=== PATIENT | male | born 1980 | race African-American/Black ===

== ENCOUNTER 2025-03-16 17:18 | Inpatient (IN) | payer OTHER, MEDICAID, SELFPAY ==
--- OUTSIDE RECORDS SUMMARY | 2014-10-13 05:47 | XMS_ITS | Continuity of Care Document ---
Author Organization [facility] Address [id number] [address] Phone Care Team Providers Care Senior Drafter Name Role Phone Climer Valencia THORNE Unavailable Unavailable Allergies, Adverse Reactions, Alerts Substance Reaction Status Criticality tramadol Itching(moderate) Active No Informa tion Medications Medication Instructions Dosage Effective Dates (start - stop) Status Comments No Drug Therapy Prescribed Problems Condition Type Effective Dates (start - stop) Clini fatemeh Status Comments No Known Problems Procedures Procedure Date OFFICE/OUTPATIENT VISIT, [facility] COMPLETE CBC W/AUTO DIFF WBC (PP $13.25) COMPREHEN METABOLIC PANEL (PP $18) ROUTINE VENIPUNCTURE (PP $3.50) 014 OFFICE/OUTPATIENT VISIT, NEW URINALYSIS AUTO W/O SCOPE (PP $3.50) Jul DRUG SCREEN SINGLE (PP $40) ASSAY OF URINE CREATININE (PP $8.75) Jul Advance Directives Directive Yes / No Effective Date File Name No Information Encounters Encounter Description Practice Location Reason(s) For Visit Diagnoses Date Provider Providers Copied on Encounter OFFICE/OUTPAT IENT VISIT, EST [facility], [id number], [id number], [place] tel:[phone] Family Medicine F1 pain in foot/ankle (chief complaint) Pain in multiple joints 5 [facility]. [address], [place], [address] , [place]. tel:[phone] Referring Provider: Valencia Mcrae, [address], [place], [address] . tel:[phone] [facility], [id number] [place], [place], [address], [place] tel:[phone] Family Medicine F1 Pain in joint involving multiple sites Jul-0 4 Amrit Escalante. [address], [place], [place], [address] , [place]. tel: [phone] Referring Provider: Ava Irizarry, [address], [place], [address] . tel:[phone] OFFICE/OUTPAT IENT VISIT, [facility], [id number], [address], [place] tel:[phone] Family Medicine F1 Arthalgias (chief complaint) Pain in multiple jointsEncounter for therapeutic drug monitoring Jul-0 4 Amrit Escalante. [address], [place], [place], [address] , [place]. tel:[phone] Referring Provider: Ava Irizarry, [address], [place], [address] . tel:[phone] [facility], [id number] [place], [address], [place] tel:[phone] Family Medicine F1 Pain in joint involving multiple sitesLong-term (current) use of other medications Jul-0 4 Amrit Escalante. [address], [place], [place], [address] , [place]. tel:[phone] Referring Provider: Ava Marcus R, [address], [place], [address] . tel:[phone] Family History Family Member Type Diagnosis Age At Onset No Information Payers Payer name Insurance type Covered democrat ID Rishabh cooper(s) No Information Social History Type Description Quantity Date Captured Comments Alcohol Use Details No Caffeine Use Details coffee and soda > 32oz per day Tobacco Use Status Moderate cigarette smoker (10-19 cigs/day) Smoking Status Heavy tobacco smoker Smoking Tobacco Use Details Cigarette: Years Used 15 Cigarette: 0 Packs per day, Pack Year: 7.5 Sex Male Vital Signs Date / Time: Height Weight BMI Pulse Rate Blood Pressure Temperature Respiratory Rate Body Surface Area Head Circumference Head Circ. Percentile Wt./Bart. Percentile BMI percentile Pulse Ox Inhaled Ox 11:05 AM 74.00 in 77.882 kg (171.70 lbs) 22.0 4 kg/m eter (2) 114 /min 149/96 mm[Hg] 98.10 F 18 /min 2.02 meter(2) 98 % Chief Complaint And Reason For Visit From encounter dated '10/13/2014 10:47'. pain in foot/ankle (chief complaint). Description: pt states that he doesnt want to ever see DD again. he is in pain from his foot. he went to the ER last night but they couldnt give him anything forthe pain. he is out of his pain meds that he had. DD would not fill them. ER notes: Ankle Sprain, contusion of right Knee and Chronic foot pain. Reason For Referral Reason For Referral No Information Plan Of Treatment Date Type Action Status Goal Tobacco cessation counseling completed History Of Present Illness Encounter Date Complaint History Of Prese nt Illness pain in foot/ankle pt states hola t he doesnt want to ever see DD again. he is in pain from his foot. he went to the ER last night but they couldnt give him anything for the pain. he is out of his pain meds that he had. DD would not fill them. ER notes: Ankle Sprain, contusion of right Knee and Chronic foot pain. pain in foot/ankle (comments) He had an xray of the right ankle and right knee yesterday at [facility]. No broken bones. Told sprains. They gave him gabapentin. He was going to see a radiologist Dr. Sarabia who giving him hydrocodone 5/325mg and he was doubling up due to his pain and also taking them every 6 hours. He has had an MRI of the right foot and he is not sure what it showed. He was taking pain medication for 4 months. He reports had an itchy rash on his right ankle and told he had HSP and then had pain so someone gave him pain medicaiton. He was given norco at the ER yesterday. Denies illicit drug use. Arthalgias Onset: 1 month a go. Location: bilateral knee. The pain is aching. There are no relieving factors. Associated symptoms include joint instability, joint tenderness, nocturnal awakening, nocturnal pain and swelling. 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 Pt states prednisone and pain medications. Pt has pain in knees and ankles. Hurts to walk. Functional Status Date Functional Assessmen t Pain Score 8/10 Medications Administered Medication Instructions Dosage Effective Dates (start - stop) Status Comments No Drug Therapy Prescribed Instructions Date Instruction Additional Infor kiel I do not have past m edical records to review. He had his ER printed sheet stating sprain.I did offer NSAID and he declined.I reviewed Ava's note from Jul and also the UDS showing marijuana use and explained he can not get controlled medication from us and he became angry, defensive and then left. Related to Pain in multiple joints Mental health care education Rel ated to Pain in multiple joints After Cyber ascess. Pt has been given multiple narcotics in ER. He see's Dr. Can that prescribes medications. I explained I would not be to give him narcotics. I would need all records and he needs to see Dr. Can for this. Related to Pain in multiple joints Assessments Type Assessment Date assessment Pain in multiple joints 015 Mental Status Date Cognitive Assessment Orientation - [place] ed to time, place, person, situation. Patient Care Teams Name Effective Dates (start - stop) Status Members No Information
[2025-03-16 17:21] VITALS: BP 144/94; PULSE 129; RESP 18; TEMP 36.7; O2SAT 97; BMI 34.3
[2025-03-16 20:57] LABS: Hematocrit 47.7 % (37-53); Hemoglobin 15.70 g/dL (11.27-16.99); Mean Corpuscular HGB Conc 32.9 g/dL (30-55); Mean Corpuscular Hemoglobin 26.7 pg (27-33); Mean Corpuscular Volume 81.1 fl (82-101); Nucleated Red Blood Cells % 0 %; Platelet Count 343 10^3/cmm (157-399); Red Blood Count 5.88 10^6/uL (3.85-5.65); White Blood Count 18.29 10^3/uL (3.29-11.43)
--- NOTE | 2025-03-16 21:25 | ECG_ITS ---
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 Measurements Intervals [place] Rate: 93 P: 37 [place]: 182 QRS: 24 QRSD: 110 T: 38 QT: 348 QTc: 435 Interpretive Statements SINUS RHYTHM INCOMPLETE RIGHT BUNDLE BRANCH BLOCK [90+ ms QRS DURATION, TERMINAL R IN V1/V2, 40+ ms S IN I/aVL/V4/V5/V6] Compared to ECG 09/26/2018 19:02:58 ST (T wave) deviation no longer present Electronically Signed On 03-19-2025 09:05:40 CDT by Colby Valdovinos M.D. [email or web address]
[2025-03-16 21:38] VITALS: BP 161/100
[2025-03-16 21:42] LABS: Alanine Aminotransferase 18 U/L (0-41); Albumin Level 4.5 g/dL (3.5-5.2); Alkaline Phosphatase 121 U/L (40-130); Anion Gap 21.6 (5-19); Aspartate Amino Transferase 15 U/L (0-40); Blood Urea Nitrogen 5 mg/dL (6-20); Calcium 9.6 mg/dL (8.5-10.5); Carbon Dioxide 21 mmol/L (22-29); Chloride 104 mmol/L (98-107); Creatinine Clr Calc Pharmacy 150.5823; Globulin 3.4 g/dL (1.3-4.6); Glucose 87 mg/dL (65-115); Lipase 27 U/L (13-60); Osmolality Calculated 293 mOsm/kg (285-295); Potassium 3.6 mmol/L (3.5-5.1); Sodium 143 mmol/L (136-145); Total Protein 7.9 g/dL (6.6-8.7)
[2025-03-16 21:51] LABS: Glucose Urine UA Negative (Normal); Nitrate Urine Negative (Negative); Specific Gravity, Urine 1.012 (1.005-1.030)
[2025-03-16 21:53] LABS: Add Urine Microscopic? YES
[2025-03-16 21:58] LABS: PCP Screen Urine Negative (Negative)
--- NOTE | 2025-03-16 22:21 | ED.C_ITS ---
HPI - Psych 2 General: Chief Complaint: Nausea/Vomiting/Diarrhea Stated Complaint: chills, aches, n/v/f Time Seen by Provider: 03/16/25 20:08 History of Present Illness: Patient is 44-year-old male chronically on buprenorphine, for the last 5 years, presents to the ED with withdrawal symptoms initially, then admits suicide ideations, hearing voices, spiritual voices, hearing them tells himself to kill himself. No specific plan. Admits to palpitations without chest pain. Admits to night terrors. Associated symptoms: Reports suicidal ideation Related Data Home Medications ?Medication ?Instructions ?Recorded ?Confirmed buprenorphine 8 mg-naloxone 2 mg tab sublingual 02/25/25 sublingual tablet gabapentin 300 mg capsule mg PO 02/25/25 02/25/25 quetiapine 400 mg tablet mg PO 02/25/25 02/25/25 Previous Rx's ?Medication ?Instructions ?Recorded amoxicillin 500 mg capsule 500 mg PO TID #30 caps 01/26 02/18 Allergies Allergy/AdvReac Type Severity Reaction Status Date / Time No Known Allergies Allergy Verified 03/16/25 17:25 Review of Systems 2 General: Reports: 10 or more systems reviewed and unremarkable except in HPI and below Const: Denies: fever(s) or chills Eyes: Denies: change in vision or blurry vision ENMT: Denies: throat pain or mouth pain Card: Denies: chest pain or palpitations GI: Reports: nausea; Denies: abdominal pain or vomiting : Denies: flank pain or difficulty urinating Musc: Reports: joint pain and joint stiffness; Denies: back pain Skin/Breast: Denies: rash or pruritus Neuro: Reports: headache(s), weakness in extremities, involuntary movements and restless legs Psych: Reports: suicidal ideation PFSH ED 2 PFSH: Medical History (Updated 03/17/25 @ 00:56 by DARWIN Gibson) LISA (obstructive sleep apnea) non-compliance Opioid use disorder Insomnia Social History Smoking and tobacco/nicotine status: current every day tobacco/nicotine user Physical Exam 2 Const: COMMON NORMALS: patient oriented x3 HENMT: COMMON NORMALS: normocephalic and atraumatic HEAD & SCALP: n ormocephalic and atraumatic Eye: COMMON NORMALS: Equal, round and reactive pupils present and EOMs intact bilaterally PUPIL: Yes Equal, round and reactive pupils present Neck/C-Spine: COMMON NORMALS: full ROM and no lymphadenopathy Lymph: LYMPHATIC: no lymphadenopathy noted Chest: COMMONS NORMALS: normal inspection of the chest and normal palpation of entire chest wall Resp: COMMON NORMALS: normal respiratory effort, No retractions and clear to auscultation bilaterally AUSCULTATION: clear to auscultation bilaterally Cardio: COMMON NORMALS: regular rate and regular rhythm RATE: regular rate RHYTHM: regular rhythm GI: COMMON NORMALS: Normal to inspection, nondistended, normoactive bowel sounds present : COMMON NORMALS: Yes no CVA tenderness BLADDER/KIDNEY EXAM: Yes no CVA tenderness Back/Pelvis: COMMON NORMALS: no CVA tenderness Extremity: COMMON NORMALS: normal to inspection, full ROM and capillary refill normal Neuro: COMMON NORMALS: patient oriented x3, CN's II-XII intact bilaterally and moves all extremities Psych: COMMON NORMALS: cooperative ATTITUDE: Yes paranoid ACTIVITY/MOTOR BEHAVIOR: Yes psychomotor agitation and Yes fidgeting THOUGHT PROCESS: Flight of ideas present THOUGHT CONTENT: Yes Suicidality present Course 2 Vital Signs: Vital signs: Vital Signs Temperature 98.1 F 03/16/25 17:21 Pulse Rate 95 03/16/25 23:04 Respiratory Rate 17 03/16/25 23:04 Blood Pressure 149/96 03/16/25 23:04 Pulse Oximetry 97 03/16/25 23:04 Oxygen Delivery Me thod Room Air 03/16/25 23:04 [facility] - Psych Medical Decision Making Patient is 44-year-old gentleman that has been on buprenorphine for the last 5 years, and is no longer on this awaiting further pain management. He admits to suicide thoughts, racing thoughts, and a plan that he will not disclose. Psych workup has been done. Patient stated he has night fits so therefore have also given him prazosin, and withdrawal medications. Patient will be referred to psych in the a.m. Lab Data 03/16/25 20:25 03/16/25 20:25 Laboratory Results WBC 18.29 10^3/uL (3.29-11.43) H 03/16/25 20:25 RBC 5.88 10^6/uL (3.85-5.65) H 03/16/25 20:25 Hgb 15.70 g/dL (11.27-16.99) 03/16/25 20: Hct 47.7 % (37-53) 03/16/25 20: MCV 81.1 fl (82-101) L 03/16/25 20: MCH 26.7 pg (27-33) L 03/16/25: MCHC 32.9 g/dL (30-55) 03/16/25: RDW 15.5 % (12.1-15.1) H 03/16/25 20: Plt Count 343 10^3/cmm (157-399) 03/16/25: MPV 10.4 fL (7.4-10.4) 03/16/25 20: Neut % (Auto) 65.2 % 03/16/25 20: Lymph % (Auto) 27.1 % 03/16/25: Bartholomew % (Auto) 5.9 % 03/16/25: Eos % (Auto) 0.8 % 03/16/25: Baso % (Auto) 0.5 % 03/16/25: Neut # (Auto) 11.91 10^3/uL (1.8-7.7) H 03/16/25: Lymph # (Auto) 5.0 10^3/uL (0.8-4.8) H 03/16/25 20:25 Bartholomew # (Auto) 1.1 10^3/uL (0.2-0.9) H 03/16/25: Eos # (Auto) 0.2 10^3/uL (0.0-0.8) 03/16/25: Baso # (Auto) 0.1 10^3/uL (0.0-0.1) 03/16/25: Nucleated RBC % (auto) 0 % 03/16/25: Nucleated RBCs # 0.0 /100WBC 03/16/25 20:25 Sodium 143 mmol/L (136-145) 03/16/25 20:25 Potassium 3.6 mmol/L (3.5-5.1) 03/16/25 20:25 Chloride 104 mmol/L (98-107) 03/16/25 20:25 Carbon Dioxide 21 mmol/L (22-29) L 03/16/25 20:25 Anion Gap 21.6 (5-19) H 03/16/25 20:25 BUN 5 mg/dL (6-20) L 03/16/25 20: Creatinine 0.9 mg/dL (0.7-1.2) 03/16/25 20: GFR Calculation 111.4 mL/min (90-130) 03/16/25 20: Glucose 87 mg/dL (65-115) 03/16/25 20:25 Calculated Osmolality 293 mOsm/kg (285-295) 03/16/25 20: Calcium 9.6 mg/dL (8.5-10.5) 03/16/25 20: Total Bilirubin 0.6 mg/dL (0.15-1.2) 03/16/25 20: AST 15 U/L (0-40) 03/16/25 20: ALT 18 U/L (0-41) 03/16/25 20: Alkaline Phosphatase 121 U/L (40-130) 03/16/25 20: Total Protein 7.9 g/dL (6.6-8.7) 03/16/25 20: Albumin 4.5 g/dL (3.5-5.2) 03/16/25 20: Globulin 3.4 g/dL (1.3-4.6) 03/16/25: Lipase 27 U/L (13-60) 03/16/25 20:25 Urine Color Yellow (Yellow) 03/16/25 21:40 Urine Appearance Clear (CLEAR) 03/16/25 21:40 Urine pH 6.0 (5-7) 03/16/25 21:40 Ur Specific [place] 1.012 (1.005-1.030) 03/16/25:40 Urine Protein Negative (Negative) 03/16/25 21:40 Urine Glucose (UA) Negative (Normal) 03/16/25 21:40 Urine Ketones Negative (Negative) 03/16/25 21:40 Urine Blood Negative (Negative) 03/16/25 21:40 Urine Nitrate Negative (Negative) 07/21/25 21:40 Urine Bilirubin Negative (Negative) 03/16/25 21:40 Urine Urobilinogen 1.0 mg/dL (Negative) 03/16/25 21:40 Ur Leukocyte Esterase Negative (Negative) 03/16/25 21:40 Urine RBC 0-2 /hpf (0-2) 03/16/25 21:40 Urine WBC 0-5 /hpf (0-5) 03/16/25 21:40 Ur Squamous Epith Cells 0-5 /hpf (0-5) 03/16/25 21:40 Amorphous Sediment Not Reportable 03/16/25 21:40 Urine Bacteria None seen /hpf (NONE) 03/16/25 21:40 Hyaline Casts 0-4 /lpf H 03/16/25 21:40 Urine Opiates Screen Negative ng/mL (Negative) 03/16/25 21:40 Ur Barbiturates Screen Negative ng/mL (Negative) 03/16/25 21:40 Ur Phencyclidine Scrn Negative ng/mL (Negative) 03/16/25 21:40 Ur Amphetamines Screen Negative ng/mL (Negative) 03/16/25 21:40 U Benzodiazepines Scrn Negative ng/mL (Negative) 03/16/25 21:40 Urine Cocaine Screen Negative ng/mL (Negative) 03/16/25 21:40 U Marijuana (THC) Screen Positive ng/mL (Negative) H 03/16/25 21:40 All radiology interpretation(s) finalized by discharge Discharge Plan Discharge Patient Disposition: Xfer Psychiatric Hosp Clinical Impression: Suicidal behavior, Substance withdrawal Condition: Stable Discharge Diet: Usual diet Discharge Activity: Resume usual activity Print Language: Kiswahili Coding Level of Care Code ED Oil Expert for Anurag Carmona
[2025-03-16 23:04] VITALS: BP 149/96; PULSE 95; RESP 17; O2SAT 97
--- NOTE | 2025-03-16 23:04 | PC.NURSE ---
pt given turkey sandwiches , drAlexander gusman and pudding for nourishment.
--- NOTE | 2025-03-17 07:30 | PC.NURSE ---
Addendum entered by Francy Bob RN 03/17/25 11:48: ORIGINAL NURSING NOTE WRITTEN BY FRANCY BOB RN NOT ZOYA LYMAN RN. Original Note: PT UPSET AND ASKING WHEN HE IS GOING TO GET A ROOM, PT REQUESTING ZYPREXA. PT UPDATED ON BED STATUS AND GIVEN BREAKFAST. DR. PURVIS NOTIFIED, ZYPREXA ORDERED.
--- NOTE | 2025-03-17 10:42 | PC.NURSE ---
Addendum entered by Francy Bob RN 03/17/25 11:48: ORIGINAL NURSING NOTE WRITTEN BY FRANCY BOB RN NOT ZOYA LYMAN RN. Original Note: ATTEMPTED TO SWAB PT FOR RESPIRATORY PANEL. PT REFUSED, PT STATING HE DOESNT WANT COVID FROM THAT DAMN SWAB.
--- NOTE | 2025-03-17 11:39 | PC.NURSE ---
Involuntary 96 hour hold rights read and reviewed with patient. Carlos from security present during reading of rights. Patient verbalized understandings and copy of rights given to patient.
--- NOTE | 2025-03-17 11:49 | PC.NURSE ---
ALL DOCUMENTATION AFTER 0700 DOCUMENTED BY THIS NURSE(STEPHANIE DYER) NOT ZOYA LYMAN.
[2025-03-17] MEDS: LORazepam 1 MG/0.5 ML injection 2 MG IM (13:35)
[2025-03-17 14:41] VITALS: BP 122/78; PULSE 103; O2SAT 100
[2025-03-17 19:52] VITALS: BP 123/75; PULSE 84; RESP 16; O2SAT 93
[2025-03-18 06:00] VITALS: RESP 16
[2025-03-18 14:00] VITALS: BP 160/94; PULSE 85; RESP 17; TEMP 36.6; O2SAT 93
--- NOTE | 2025-03-18 15:34 | W.PM.NPUH&PS ---
Providers/Chief Complaint Admitting Physician: Rico Bautista MD Chief Complaint: chills, aches, n/v/f HPI NPU History of Present Illness Beto Christian is a 44 year old male who presented to the emergency department with the following report: Chief Complaint: Nausea/Vomiting/Diarrhea Stated Complaint: chills, aches, n/v/f Time Seen by Provider: 03/16/25 20:08 History of Present Illness: Patient is 44-year-old male chronically on buprenorphine, for the last 5 years, presents to the ED with withdrawal symptoms initially, then admits suicide ideations, hearing voices, spiritual voices, hearing them tells himself to kill himself. No specific plan. Admits to palpitations without chest pain. Admits to night terrors. Associated symptoms: Reports suicidal ideation He was admitted to the neuropsychiatric unit for definitive treatment of those issues. He is known to [facility] psychiatry through past inpatient hospitalizations last of which was in 2019. A excerpt of that psychiatric evaluation is included below for historical context. He presents now with a UDS positive for cannabis and self reporting being a person on Suboxone maintenance therapy for some time but moved to the area about a month ago and has not gotten reconnected with services for his addiction or mental health needs. He reports having last took Suboxone about 6 days ago however the system suggest that he should about about 6 weeks ago. He endorses that the withdrawal from Suboxone is one of the major reasons why he is here he does report a history of auditory hallucinations that have been well treated by the Seroquel 600 mg he takes at night. He reports that he moved here to be with his mother. And lives there. He last had treatment for mental health and addiction in the [facility]. He endorsed significant childhood trauma which led to PTSD symptoms. He reports having significant difficulties with methamphetamines and opiates which led to multiple rehab visits. He reports that he was in LD classes in school and never graduated or got his GED. He endorsed being heterosexual and still being and having been from his for some time. He has 4 children 2 boys 2 girls but he only has contact with the oldest that is a girl and from a different relationship and his other children. He never been in the and has no zoroastrianism belief system he is currently seeking disability. He has been in prison many times the longest time was 90 days. Denies significant medical problems. We discussed getting him connected to services for both mental health and addiction with his Suboxone. We agreed we would continue his Seroquel and give him Suboxone this evening and make sure we understand his history prior to giving him a standing dose. Per his 09/27/2018 [facility] inpatient psychiatric evaluation: Date of Service: Sep 27, 2018 Chief Complaint: Reported suicidal ideation HPI: The patient is a 38-year-old male well-known to our behavioral health services who initially presented to the ER stating that he was suicidal requesting to be admitted voluntarily to the NPU. The patient had previously presented to the ER on 09/24/2018 and was admitted to [facility] psychiatric unit until September 26. After he was discharged, he apparently returned to his parents home where he reports me and my mom got into it. She kicked me out. Reports that he had previously spoken with one of his brothers in [place] who had agreed for him to stay there, but his mother would not give him a ride. He reports that he packed his bags and she dropped him off at the local [employer]. Reports he did not know where else to go over what else to do so and was feeling suicidal at that time, so he walked himself to the hospital for admission. The patient is well known to our service due to frequent psychiatric admissions in the context of mood symptoms exacerbated by chronic homelessness and significant substance abuse. Has a history of noncompliance with his treatment, group refusal, and behavioral issues on the unit especially in attempts to manipulate for narcotic sedative medications. Overnight, he has not had any behavioral issues/anger outbursts and has been compliant with medication but declined to attend group therapy. Today, the patient reports that he is no longer feeling suicidal and does have Medicaid which should help him pay for a ride to [place]. He reports that he does not feel any further medication changes are needed after his recent [facility] admission and already has follow-up at [facility] as a walk-in for next week and scheduled appointment in October. He reports that his mood is fine and is requesting discharge. The patient reports that he had recently discontinued his medication after one of his other brothers convinced him to stop taking pharmaceuticals. Reports that he felt worse off medication and was beginning to experience suicidal ideation. When asked about mood symptoms over the last 2 weeks, however, the patient denies that he has been persistently depressed, denies anhedonia. He denies any further suicidal ideation today nor any recent planning. He denies any overt history of manic episode but does have history of extensive drug use. Reports he has been sober from methamphetamines and marijuana for the past 3 months after going into chemical dependency treatment at [facility]. Reports that he does get somewhat anxious at times but feels his medications have controlled this well. Denies any hallucinations. Does report some irritability with his parents due to recent eviction but denies any homicidal ideation. Denies any paranoia. Past Medical History Past Medical History: PAST PSYCHIATRIC HISTORY: -Has had 4 prior NPU admissions in 2018. He was discharge from [facility] on 09/26/2018 on Prozac, gabapentin, Zyprexa. He does have a history of manipulative behavior for narcotic sedative medications/frequent psychiatric admissions notably so during the month of February 2018 he was given a total of 4 months worth of prescriptions including Klonopin. Patient reports that he has not seen an outpatient psychiatrist since that time.previously he has tested positive for amphetamines and cannabis. Denies hx SA. -Previous diagnosis of substance-induced mood disorder,methamphetamine/cannabis use disorder. Past medications gabapentin 600 mg 3 times a day, Zyprexa 10 mg daily at bedtime and 20 mg daily at bedtime when necessary agitation, Prozac 40 mg daily, clonidine 0.1 mg 3 times a day, Klonopin 0.5 mg 3 times a day, Seroquel 400 mg, Celexa, clonidine. PAST FAMILY PSYCHIATRIC HISTORY: -denies mental illness SOCIAL HISTORY: -Currently without steady home situation, has been estranged from his and children. Reports his mother is supportive but is requiring him to attend chemical dependency treatment before she will assist him with additional psychosocial resources. Unemployed. Legal- denies. Education- did not graduate, reports hx learning and behavioral problems. PAST MEDICAL HISTORY: -denies TBI/ seizures/ surgeries. Meds NPU Home Medications ?Medication ?Instructions ?Recorded ?Confirmed ?Last Taken ?Type buprenorphine 8 mg-naloxone 2 mg 1 tab sublingual BID 02/25/25 03/17/25 Unknown History sublingual tablet gabapentin 300 mg capsule 300 mg PO TID 02/25/25 03/18/25 Unknown History quetiapine 400 mg tablet 600 mg PO BEDTIME 02/25/25 03/17/25 Unknown History Allergies Allergy/AdvReac Type Severity Reaction Status Date / Time No Known Allergies Allergy Verified 03/16/25 17:25 PFS NPU PFSH: Medical History (Updated 03/19/25 @ 09:22 by Rico Bautista MD) LISA (obstructive sleep apnea) non-compliance Opioid use disorder Insomnia Social History Smoking and tobacco/nicotine status: current every day tobacco/nicotine user Mental Status Exam MSE Comments: This is a tall overweight appearing male in hospital scrubs with limited grooming and eye contact. No abnormal movements except for mild psychomotor retardation. Cooperative with exam in mild to moderate distress. Speech was slightly decreased rate and volume. Mood described as anxious, affect congruent. Thought process linear. Thought content: Patient denies current suicidal ideation but reported having suicidal thoughts that led to the hospitalization but denies homicidal ideation, there were no delusions reported or noted, he denied any auditory or visual hallucination. Attention and concentration were limited and memory was mostly reliable but occasionally unreliable likely intentionally but none were formally tested. He was alert and oriented x 3. Insight and judgment were limited and impulse control was impaired. Vitals/I&O/Wt Last Vital Signs Temp 98.1 F 03/16/25 17:21 Pulse 103 H 03/17/25 14:41 Resp 17 03/16/25 23:04 BP 122/78 03/17/25 14:41 Pulse Ox 100 03/17/25 14:41 O2 Del Method Room Air 03/16/25 23:04 03/17/25 03/17/25 03/17/25 06:59 14:59 22:59 Intake Total Balance Weight last 48 hrs Weight 124.738 kg Data NPU 03/16/25 20:25 03/16/25 20:25 A&P Assessment and plan 1. Opioid use disorder: 2. Suicidal behavior: 3. Substance withdrawal: 4. Psychosis: Plan: This is a 44-year-old appearing male with previous psychiatric hospitalizations but none since 2019 who presents with reports of suicidality depression withdrawal from Suboxone with UDS positive for marijuana and having moved to the area and not having access to continuation of his medication. 1. Restart home medications. Will give a dose of Suboxone 4/1 mg and consider restarting twice daily tomorrow. 2. Encourage individual, group and milieu therapies. 3. Continue every 15 minute checks for safety. 4. Get collateral information. 5. Encourage sober living treatment after discharge at the highest level of care to which he is willing to commit. 6. Evaluate against the backdrop of the 96-hour hold. PDMP PDMP Reviewed: Not Reviewed Involuntary Hold Information Hold Status: Legal Status: 96 Hour Hold Attestations NPU Medical Necessity Statement*: Inpatient hospitalization is medically necessary and the clinically appropriate intervention at this time. We will monitor medications and make changes as indicated. Patient will be in the hospital for over two midnights. Likely length of stay is 5-7 days. Coding Level of Care Code Acute Code for [facility] Fwd Diagnoses Opioid use disorder F11.90 Suicidal behavior R45.89 Substance withdrawal F19.939 Psychosis F29
[2025-03-18] MEDS: buprenorphine-naloxone 4-1 mg Film 1 EACH SUBLINGUAL (18:42)
[2025-03-18 19:53] VITALS: BP 150/86; PULSE 87; RESP 18; TEMP 36.8; O2SAT 96
[2025-03-19 06:00] VITALS: BP 119/78; PULSE 92; RESP 18; O2SAT 95
[2025-03-19 14:00] VITALS: BP 113/77; PULSE 79; RESP 16; TEMP 36.9; O2SAT 95
[2025-03-19] MEDS: buprenorphine-naloxone 4-1 mg Film 1 EACH SUBLINGUAL (19:33)
--- NOTE | 2025-03-19 19:49 | P.NPUPN_ITS ---
Subjective NPU 2 Subjective: Patient presented today reporting that he is feeling better with the Suboxone initiated. We had a lengthy discussion about the delay as we were tracking his records of when he is gotten the medication. We discussed appreciating that Suboxone is a well tested and back to treatment but we wanted to make sure that he was in fact appropriate to be getting the medication at this point. We did speak to his mother and she was able to corroborate much of his story. Otherwise he denied any additional side effects to medications. Mental Status Exam 2 MSE Comments: This is a tall overweight appearing male in hospital scrubs with limited grooming and eye contact. No abnormal movements except for mild psychomotor retardation. Cooperative with exam in mild to moderate distress. Speech was slightly decreased rate and volume. Mood described as anxious, affect congruent. Thought process linear. Thought content: Patient denies current suicidal ideation but reported having suicidal thoughts that led to the hospitalization but denies homicidal ideation, there were no delusions reported or noted, he denied any auditory or visual hallucination. Attention and concentration were limited and memory was mostly reliable but occasionally unreliable likely intentionally but none were formally tested. He was alert and oriented x 3. Insight and judgment were limited and impulse control was impaired. Vitals/I&O/Wt Last Vital Signs Temp 98.5 F 03/19/25 14:00 Pulse 79 03/19/25 14:00 Resp 16 03/19/25 14:00 BP 113/77 03/19/25 14:00 Pulse Ox 95 03/19/25 14:00 O2 Del Method Room Air 03/19/25 14:00 Data NPU 03/16/25 20:25 03/16/25 20:25 A&P Assessment and plan 1. Opioid use disorder: 2. Suicidal behavior: 3. Substance withdrawal: 4. Psychosis: Plan: This is a 44-year-old appearing male with previous psychiatric hospitalizations but none since 2019 who presents with reports of suicidality depression withdrawal from Suboxone with UDS positive for marijuana and having moved to the area and not having access to continuation of his medication. 1. Restart home medications. Will give a dose of Suboxone 4/1 mg and restart twice daily. 2. Encourage individual, group and milieu therapies. 3. Continue every 15 minute checks for safety. 4. Get collateral information. 5. Encourage sober living treatment after discharge at the highest level of care to which he is willing to commit. 6. Evaluate against the backdrop of the 96-hour hold. PDMP PDMP Reviewed: Not Reviewed Involuntary Hold Information 2 Hold Status: Legal Status: 96 Hour Hold Date/Time Hold Expires: 03/23/25 @ 10:42 Attestations NPU 2 Medical Necessity Statement*: Inpatient hospitalization is medically necessary and the clinically appropriate intervention at this time. We will monitor medications and make changes as indicated. Likely length of stay is 2-5 days. Coding Level of Care Code Acute Code for [facility] Fwd Diagnoses Opioid use disorder F11.90 Suicidal behavior R45.89 Substance withdrawal F19.939 Psychosis F29
[2025-03-19 20:47] VITALS: BP 133/90; PULSE 88; RESP 17; TEMP 36.4; O2SAT 98
[2025-03-20 06:00] VITALS: BP 122/80; PULSE 93; RESP 19; TEMP 36.5; O2SAT 95
[2025-03-20] MEDS: buprenorphine-naloxone 4-1 mg Film 1 EACH SUBLINGUAL (07:54)
[2025-03-20 14:00] VITALS: BP 145/80; PULSE 91; RESP 16; TEMP 37.1; O2SAT 95
[2025-03-20 14:31] VITALS: BP 145/80; PULSE 91; RESP 16; TEMP 37.1; O2SAT 95
== END 2025-03-20 15:23 | disposition home or self-care (01) | DRG 885 ==
LOC: ER 03-17 00:56 → ER IP 03-17 02:51 → NP 03-17 15:16
PROVIDERS: Emergency Medicine; Admitting Provider Psychiatry & Neurology Psychiatry; Emergency Provider Physician Assistant; Visit Provider Psychiatry & Neurology Psychiatry
DX: F29 Unspecified psychosis not due to a substance or known physiological condition (principal); R45.851 Suicidal ideations; F11.93 Opioid use, unspecified with withdrawal; F32.A Depression, unspecified; E66.9 Obesity, unspecified; Z68.34 Body mass index [BMI] 34.0-34.9, adult; F17.210 Nicotine dependence, cigarettes, uncomplicated; Z86.59 Personal history of other mental and behavioral disorders
CPT/HCPCS: 36415; 80053; 80306; 81001; 83690; 85025; 93005; 96372; 97150; 97165; 99285; J0573; J2060; J3486; J9999; Q0162

== ENCOUNTER 2025-07-24 14:35 | Emergency (ER) | payer OTHER, MEDICAID, SELFPAY ==
--- NOTE | 2025-07-24 14:40 | ECG_ITS ---
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 Measurements Intervals [place] Rate: 89 P: 56 WV: 152 QRS: 14 QRSD: 101 T: 25 QT: 385 QTc: 470 Interpretive Statements SINUS RHYTHM WITH SINUS ARRHYTHMIA Compared to ECG 03/16/2025 22:01:01 Incomplete right bundle-branch block no longer present Electronically Signed On 07-25-2025 15:38:34 CHHA by Leo Tim M.D. [email or web address]
[2025-07-24 14:55] VITALS: BP 194/104; PULSE 68; RESP 18; TEMP 36.7; O2SAT 100
[2025-07-24 15:00] LABS: Hematocrit 49.4 % (37-53); Hemoglobin 16.00 g/dL (11.27-16.99); Mean Corpuscular HGB Conc 32.4 g/dL (30-55); Mean Corpuscular Hemoglobin 26.5 pg (27-33); Mean Corpuscular Volume 81.8 fl (82-101); Nucleated Red Blood Cells % 0 %; Platelet Count 373 10^3/cmm (157-399); Red Blood Count 6.04 10^6/uL (3.85-5.65); White Blood Count 19.99 10^3/uL (3.29-11.43)
[2025-07-24] MEDS: haloperidol inj 5 mg/mL INJ 1 mL IM (15:00)
[2025-07-24] MEDS: LORazepam 2 mg/mL INJ 1 mL IM (15:00)
--- NOTE | 2025-07-24 15:01 | W.ED.PSYCHS ---
HPI - Psych General: Chief Complaint: Psychiatric Symptoms Stated Complaint: 96 HOUR HOLD Time Seen by Provider: 07/24/25 14:36 Source: patient and police Limitations: no limitations History of Present Illness: 45-year-old male has history of psychosis with a long psych history. Patient is brought here by police as he is acutely psychotic here patient is telling me that people been trying to shoot him with meth and sending him anthrax to the male he is extremely paranoid here. Related Data Previous Rx's ?Medication ?Instructions ?Recorded buprenorphine 4 mg-naloxone 1 mg 1 film sublingual BID 14 days #28 03/20/25 sublingual film ea quetiapine 400 mg tablet 600 mg (1.5 x 400 mg) PO BEDTIME 03/20/25 30 days #75 tabs Allergies Allergy/AdvReac Type Severity Reaction Status Date / Time No Known Allergies Allergy Verified 03/16/25 17:25 Review of Systems Psych: Reports: paranoia [facility] ED PFSH: Medical History LISA (obstructive sleep apnea) non-compliance Opioid use disorder Insomnia Social History Smoking and tobacco/nicotine status: current every day tobacco/nicotine user Physical Exam Const: COMMON NORMALS: patient oriented x3 HENMT: COMMON NORMALS: normocephalic and atraumatic HEAD & SCALP: normocephalic and atraumatic Eye: COMMON NORMALS: Equal, round and reactive pupils present and EOMs intact bilaterally PUPIL: Yes Equal, round and reactive pupils present Neck/C-Spine: COMMON NORMALS: full ROM and supple Chest: COMMONS NORMALS: normal inspection of the chest Resp: COMMON NORMALS: normal respiratory effort Cardio: COMMON NORMALS: regular rate RATE: regular rate Extremity: COMMON NORMALS: normal to inspection and full ROM Neuro: COMMON NORMALS: patient oriented x3, moves all extremities and no focal motor deficits Psych: COMMON NORMALS: mental status grossly normal MOOD & AFFECT: Yes elevated mood THOUGHT PROCESS: disorganized and Flight of ideas present THOUGHT CONTENT: Yes Derealization present Skin: COMMON NORMALS: no rashes or lesions noted and no wounds GENERAL SKIN EXAM: no rashes or lesions noted Course Vital Signs: Vital signs: Vital Signs Temperature 98.1 F 07/24/25 14:55 Pulse Rate 68 07/24/25 21:44 Respiratory Rate 16 07/24/25 20:00 Blood Pressure 122/81 07/24/25 21:44 Pulse Oximetry 96 07/24/25 21:44 Oxygen Delivery Me thod Room Air 07/24/25 20:00 MDM - Psych Medical Decision Making Patient presents here with acute psychosis he is medically cleared labs showed no significant abnormality will transfer at this time due to no psych bed availability. Medical Records I reviewed the patient's medical records. Lab Data I reviewed the patient's lab results. 07/24/25 14:53 07/24/25 14:53 Radiology Impressions Chest X-Ray 07/24/25 15:04 IMPRESSION: No acute findings. Laboratory Results WBC 19.99 10^3/uL (3.29-11.43) H 07/24/25 14:53 RBC 6.04 10^6/uL (3.85-5.65) H 07/24/25 14:53 Hgb 16.00 g/dL (11.27-16.99) 07/24/25 14:53 Hct 49.4 % (37-53) 07/24/25 14:53 MCV 81.8 fl (82-101) L 07/24/25 14:53 MCH 26.5 pg (27-33) L 07/24/25 14:53 MCHC 32.4 g/dL (30-55) 07/24/25 14:53 RDW 15.7 % (12.1-15.1) H 07/24/25 14:53 Plt Count 373 10^3/cmm (157-399) 07/24/25 14:53 MPV 9.7 fL (7.4-10.4) 07/24/25 14:53 Neut % (Auto) 78.1 % 07/24/25 14:53 Lymph % (Auto) 15.5 % 07/24/25 14:53 [place] % (Auto) 5.5 % 07/24/25 14:53 Eos % (Auto) 0.0 % 07/24/25 14:53 Baso % (Auto) 0.5 % 07/24/25 14:53 Neut # (Auto) 15.63 10^3/uL (1.8-7.7) H 07/24/25 14:53 Lymph # (Auto) 3.1 10^3/uL (0.8-4.8) 07/24/25 14:53 [place] # (Auto) 1.1 10^3/uL (0.2-0.9) H 07/24/25 14:53 Eos # (Auto) 0.0 10^3/uL (0.0-0.8) 07/24/25 14:53 Baso # (Auto) 0.1 10^3/uL (0.0-0.1) 07/24/25 14:53 Nucleated RBC % (auto) 0 % 07/24/25 14:53 Nucleated RBCs # 0.0 /100WBC 07/24/25 14:53 Sodium 138 mmol/L (136-145) 07/24/25 14:53 Potassium 3.8 mmol/L (3.5-5.1) 07/24/25 14:53 Chloride 99 mmol/L (98-107) 07/24/25 14:53 Carbon Dioxide 26 mmol/L (22-29) 07/24/25 14:53 Anion Gap 16.8 (5-19) 07/24/25 14:53 BUN 12 mg/dL (6-20) 07/24/25 14:53 Creatinine 0.8 mg/dL (0.7-1.2) 07/24/25 14:53 GFR Calculation 127.1 mL/min (90-130) 07/24/25 14:53 Glucose 116 mg/dL (65-115) H 07/24/25 14:53 Calculated Osmolality 287 mOsm/kg (285-295) 07/24/25 14:53 Calcium 9.7 mg/dL (8.5-10.5) 07/24/25 14:53 Total Bilirubin 0.7 mg/dL (0.15-1.2) 07/24/25 14:53 AST 23 U/L (0-40) 07/24/25 14:53 ALT 30 U/L (0-41) 07/24/25 14:53 Alkaline Phosphatase 140 U/L (40-130) H 07/24/25 14:53 Total Protein 8.9 g/dL (6.6-8.7) H 07/24/25 14:53 Albumin 4.8 g/dL (3.5-5.2) 07/24/25 14:53 Globulin 4.1 g/dL (1.3-4.6) 07/24/25 14:53 TSH 1.20 uIU/mL (0.27-4.20) 07/24/25 14:53 Salicylates < 0.3 mg/dL (3-10) L 07/24/25 14:53 Urine Opiates Screen Negative ng/mL (Negative) 07/24/25 15:00 Acetaminophen < 5.0 ug/mL (10-30) L 07/24/25 14:53 Ur Barbiturates Screen Negative ng/mL (Negative) 07/24/25 15:00 Ur Phencyclidine Scrn Negative ng/mL (Negative) 07/24/25 15:00 Ur Amphetamines Screen Negative ng/mL (Negative) 07/24/25 15:00 U Benzodiazepines Scrn Negative ng/mL (Negative) 07/24/25 15:00 Urine Cocaine Screen Negative ng/mL (Negative) 07/24/25 15:00 U Marijuana (THC) Screen Positive ng/mL (Negative) H 07/24/25 15:00 Ethyl Alcohol < 10 mg/dL (0-10) 07/24/25 14:53 Influenza A (PCR) Negative (Negative) 07/24/25 16:45 Influenza Type B (PCR) Negative (Negative) 07/24/25 16:45 RSV (PCR) Negative (Negative) 07/24/25 16:45 SARS-CoV-2 (PCR) Negative (Negative) 07/24/25 16:45 All radiology interpretation(s) finalized by discharge EKG Data EKG 1: I personally reviewed and interpreted this EKG as follows: EKG interpretation date: 07/24/25 EKG interpretation time: 16:55 Interpretation: nsr hr [address] elevation qrs 101 qtc 432 Discharge Plan Discharge Patient Disposition: Xfer Psychiatric Hosp Condition: Stable Print Language: Sinhala Coding Level of Care Code ED 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
--- NOTE | 2025-07-24 15:04 | XRR_ITS ---
PROCEDURE INFORMATION: Exam: XR Chest Exam date and time: 07/24/2025 3:50 PM Age: 45 years old Clinical indication: Cough; Additional info: Psych TECHNIQUE: Imaging protocol: Radiologic exam of the chest. Views: 1 view. COMPARISON: No relevant prior studies available. FINDINGS: Lungs: Unremarkable. No consolidation. Pleural spaces: Unremarkable. No pleural effusion. No pneumothorax. Heart/Mediastinum: Unremarkable. No cardiomegaly. Bones/joints: Unremarkable. XR/XR chest 1V portable [id number] IMPRESSION: No acute findings.
--- NOTE | 2025-07-24 15:20 | PC.NURSE ---
THIS NURSE WENT TO ATTEMPT TO SWAB PT NOSE FOR COVID/FLU/RSV. PT STATED HE WOULD NOT LET THIS NURSE SWAB HIS NOSE AND STOOD UP OFF THE BED AND STARTED TO WALK TOWARD THIS NURSE. THIS NURSE EXITED THE ROOM. PT CONTINUED TO STATE I DON'T HAVE COVID. THOSE DON'T EXIST. PROVIDER NOTIFIED.
[2025-07-24 15:28] LABS: Alanine Aminotransferase 30 U/L (0-41); Albumin Level 4.8 g/dL (3.5-5.2); Alkaline Phosphatase 140 U/L (40-130); Anion Gap 16.8 (5-19); Aspartate Amino Transferase 23 U/L (0-40); Blood Urea Nitrogen 12 mg/dL (6-20); Calcium 9.7 mg/dL (8.5-10.5); Carbon Dioxide 26 mmol/L (22-29); Chloride 99 mmol/L (98-107); Globulin 4.1 g/dL (1.3-4.6); Glucose 116 mg/dL (65-115); Osmolality Calculated 287 mOsm/kg (285-295); Potassium 3.8 mmol/L (3.5-5.1); Sodium 138 mmol/L (136-145); Thyroid Stimulating Hormone 1.20 uIU/mL (0.27-4.20); Total Protein 8.9 g/dL (6.6-8.7)
[2025-07-24 15:29] LABS: Acetaminophen < 5.0 ug/mL (10-30); Alcohol Level < 10 mg/dL (0-10); Salicylate < 0.3 mg/dL (3-10)
[2025-07-24 15:46] LABS: PCP Screen Urine Negative (Negative)
--- NOTE | 2025-07-24 15:58 | PC.NURSE ---
96 hr rights reviewed with pt @5225 with assistance of [facility] commissioned fire officer Carlos Le All education reviewed with pt at this time. Pt verbalized understanding to hold parameters. Copy of rights was provided to pt. No further needs.
[2025-07-24 17:38] LABS: Respiratory Syncytial Virus Ce NEGATIVE (Negative); SARS-CoV-2 PCR NEGATIVE (Negative)
[2025-07-24 18:36] VITALS: BP 151/84; PULSE 83; O2SAT 95
--- NOTE | 2025-07-24 19:56 | PC.NURSE ---
Pt is resting quietly with eyes closed. RR even and unlabored.
[2025-07-24 20:00] VITALS: BP 122/81; PULSE 68; RESP 16; O2SAT 96
[2025-07-24 21:44] VITALS: BP 122/81; PULSE 68; O2SAT 96
== END 2025-07-24 21:35 ==
PROVIDERS: Emergency Provider Emergency Medicine
DX: F23 Brief psychotic disorder (principal); Z11.52 Encounter for screening for COVID-19
CPT/HCPCS: 36415; 71045; 80053; 80306; 80307; 84443; 85025; 87637; 93005; 96372; 99285; J1630; J2060